=== PATIENT | male | born 1955 | race Caucasian/White ===

== ENCOUNTER 2019-01-10 14:00 | Inpatient (IN) ==
[2019-01-10] MEDS ORDERED: ASPIRIN PO ONE (14:19)
[2019-01-10 14:33] LABS: BE 0.4 mmoll (-3.0-3.0); BLOOD TYPE ARTERIAL; HCO3-(ACT) 25.1 mmoll (20.0-26.0); METHB 1.3 % (0.0-1.5); O2(CT) 18.9 mL/dL (15.0-23.0); O2HB 93.9 % (95.0-99.0); PCO2(98.6) 31 mmHg (35-45); PO2(98.6) 75 mmHg (60-100); SAMPLE BLOOD; SAO2 97.7 % (95.0-100.0); THB 14.3 g/dL (11.5-17.4); pH(98.6) 7.48 (7.35-7.45)
[2019-01-10 14:34] LABS: ALLEN TEST NO; MODALITY ROOM AIR
[2019-01-10 14:46] LABS: BASO# 0.04 X1000 (0.0-0.2); BASO% 0.3 % (0.0-0.8); EOS# 0.13 X1000 (0.0-0.7); EOS% 1.1 % (0.0-10.0); HEMATOCRIT 41.8 % (42.0-52.0); HEMOGLOBIN 13.7 g/dL (14.0-18.0); IMM GRAN# 0.02 X1000 (0.0-0.04); IMM GRAN% 0.2 % (0.0-0.5); LYMPH# 3.59 X1000 (1.2-3.4); LYMPH% 29.9 % (20.5-51.1); MCH 30.6 PG (27-31); MCHC 32.8 g/dL (33-37); MCV 93.5 FL (81-99); MONO# 0.99 X1000 (0.11-0.59); MONO% 8.2 % (1.7-9.3); MPV 12.5 FL (7.4-10.4); NEUT# 7.25 X1000 (1.4-6.5); NEUT% 60.3 % (42.2-75.2); PLT 265 X1000 (130-400); RBC 4.47 XMIL (4.7-6.1); WBC 12.02 X1000 (4.8-10.8)
[2019-01-10 14:56] LABS: INR 1.07; PROTIME 14.5 Seconds (11.0-16.0)
[2019-01-10 14:57] LABS: PTT 32.1 Seconds (22.3-41.8)
[2019-01-10 15:08] LABS: AGAP 13; ALBUMIN 4.7 g/dL (3.5-5.0); ALKALINE PHOSPHATASE 57 U/L (32-122); BUN 16 mg/dL (8-22); CALCIUM 9.8 mg/dL (8.8-10.2); CHLORIDE 102 mmol/L (98-107); CK PROFILE 64 U/L (24-204); COSMO 279; CREATININE 1.2 mg/dL (0.7-1.2); ESTIMATED GFR > 60; GLUCOSE 135 mg/dL (70-104); GOT 17 U/L (10-34); GPT 24 U/L (10-44); POTASSIUM 4.5 mmol/L (3.5-5.1); SODIUM 138 mmol/L (136-145); TCO2 24 mmol/L (25-35); TOTAL PROTEIN 7.3 g/dL (6.3-8.3)
--- NOTE | 2019-01-10 15:51 | EKG Report ---
Test Performed on : 01/10/2019 2:26:28 PM Test Reason : sob chest pressure Blood Pressure : / mmHG Vent. Rate : 107 BPM Atrial Rate : 119 BPM P-R Int : 000 ms QRS Dur : 112 ms QT Int : 306 ms P-R-T Axes : 000 044 234 degrees QTc Int : 408 ms Undetermined rhythm Left ventricular hypertrophy with repolarization abnormality Abnormal ECG No previous ECGs available Unconfirmed Result
--- NOTE | 2019-01-10 16:00 | PROVIDER DOCUMENTATION ---
This chart was entered by Erika Dukes Scribe, acting as scribe for Donovan Hughes MD. HPI-Chest Pain - General Chief Complaint: Shortness of Breath Stated Complaint: SOB / NAUSEA Time Seen by Provider: 01/10/19 14:20 Source: patient Allergies/Adverse Reactions: Patient Allergies Allergy/AdvReac Type Severity Reaction Status Date / Time No Known Allergies Allergy Verified 01/10/19 14:18 - History of Present Illness-CP Nature of Presenting Problem: 63 y/o male presents to ED with intermittent pressure-like chest pain, SOB, and nausea onset 2 weeks ago. Pt reports he feels like someone is sitting on his chest. Pt is alert and oriented. Location: reports: central Chest Pain Radiation: reports: no radiation Quality of Pain: reports: pressure Severity in ED: moderate Onset/Duration: other (2 weeks ago) Timing: still present, intermittent, getting worse Context/Activities at Onset: reports: none Modifying Factors: improves with: nothing Associated Symptoms: reports: nausea, shortness of breath Nitro Today/Relief: no nitro taken today Aspirin Treatment Today: 325 mg x 1, provided by ED Prior Chest Pain/Cardiac Workup: reports: no prior chest pain, no prior cardiac workup Similar Symptoms Previously?: No Recently Seen Here or By Another Healthcare Provider: No Review of Systems - Adult - REVIEW OF SYSTEMS - ADULT Constitutional: denies: chills, fever Eyes: reports: no symptoms reported Ears, Nose, Mouth & Throat: reports: no symptoms reported Cardiovascular: reports: chest pain. denies: palpitations Respiratory: reports: shortness of breath. denies: cough Gastrointestinal: reports: nausea. denies: abdominal pain, diarrhea, vomiting Genitourinary: reports: no symptoms reported Musculoskeletal: reports: no symptoms reported Integumentary: reports: no symptoms reported Neurological: denies: dizziness/vertigo, seizure Psychiatric: reports: no symptoms reported Endocrine: reports: no symptoms reported Hematologic/Lymphatic: reports: no symptoms reported Allergic/Immunologic: reports: no symptoms reported All Other Systems: Reviewed and Negative Past History - Adult - PAST MEDICAL HISTORY-ADULT Review of Records: reports: Old Records Reviewed, Nursing Assessment Review, Medications Reviewed Major Childhood Illnesses: reports: denies history - PRIOR SURGERIES/PROCEDURES Surgical/Procedure History: reports: none - IMMUNIZATION STATUS Childhood Immunizations: See Nurse Assessment Flu Vaccine: See Nurse Assessment - FAMILY HISTORY Family History: reviewed, not pertinent - SOCIAL HISTORY Smoking: greater than 1 pack/day Provider spent 3-5 mins advising pt. on dangers of tobacco.: Discussed manners to quit use, and f/u contacts for add'l counseling. Substance Use: none/never Alcohol Use Frequency: never Living Situation: family Physical Exam-General - PHYSICAL EXAM-ADULT Initial Vital Signs Reviewed: Yes - CONSTITUTIONAL General Appearance: alert, moderate distress - EYES Eyes: PERRL/EOMI, pink conjunctivae - HEAD, EARS, NOSE, MOUTH & THROAT HENMT: normocephalic/atraumatic, moist mucous membranes, normal ENT inspection - NECK Neck: non-tender, full range of motion - RESPIRATORY Respiratory: chest non-tender, respiratory distress, accessory muscle use, rhonchi, increased rate - CARDIOVASCULAR Cardiovascular: tachycardia, irregularly irregular - GASTROINTESTINAL (ABDOMEN) Abdominal Exam: normal bowel sounds, soft, tenderness (RUQ) - MUSCULOSKELETAL Back Exam: normal inspection, no CVA tenderness, no vertebral tenderness Extremity: normal range of motion, non-tender - SKIN Integumentary: normal color, warm/dry - NEUROLOGIC Neurologic: grossly normal - PSYCHIATRIC Psych/Mental Status: normal mood/affect, normal thought content, normal thought process, oriented x 3 - HEART Score HEART Score: History: Moderately Suspicious HEART Score: ECG: Non-Specific Repolarization Disturbance/LBBB/PM HEART Score: Age: 45-65 Years HEART Score: Risk Factors for Atherosclerotic Disease: No Risk Factors Known HEART Score: Troponin: < or = Normal Limit Total HEART Score:: 3 Progress - PLAN OF CARE/RESULTS Progress/Plan/Lab Results: Vital Signs - 8 hr 01/10/19 14:14 01/10/19 15:23 01/10/19 15:52 Temperature 97.6 F Pulse Rate 92 H 95 H 108 H Respiratory Rate 26 H 20 16 Blood Pressure 147/80 132/84 132/84 O2 Sat by Pulse Oximetry 96 96 96 Laboratory Results - last 24 hr 01/10/19 01/10/19 01/10/19 14:10 14:30 14:30 WBC 12.02 H RBC 4.47 L Hgb 13.7 L Hct 41.8 L MCV 93.5 MCH 30.6 MCHC 32.8 L RDW Std Deviation 14.0 Plt Count 265 MPV 12.5 H Immature Gran % (Auto) 0.2 Neut % (Auto) 60.3 Lymph % (Auto) 29.9 [place] % (Auto) 8.2 Eos % (Auto) 1.1 Baso % (Auto) 0.3 Immature Gran # (Auto) 0.02 Neut # (Auto) 7.25 H Lymph # (Auto) 3.59 H [place] # (Auto) 0.99 H Eos # (Auto) 0.13 Baso # (Auto) 0.04 PT INR PTT (Actin FS) Specimen Type ARTERIAL Sample Site R RADIAL pH 7.48 H pCO2 31 L pO2 75 HCO3 25.1 Base Excess 0.4 Oxyhemoglobin 93.9 L ABG O2 Sat (Calculated) 18.9 ABG O2 Saturation 97.7 ABG Carboxyhemoglobin 2.60 H ABG Methemoglobin 1.3 Jero Test NO A-a O2 Difference 36.0 Total Hemoglobin 14.3 Lactate 1.20 Blood Gas Modality ROOM AIR FiO2 % 21.0 Sodium 138 Potassium 4.5 Chloride 102 Carbon Dioxide 24 L Anion Gap 13 BUN 16 Creatinine 1.2 Estimated GFR/1.73 m2 > 60 BUN/Creatinine Ratio 13 Glucose 135 H Calculated Osmolality 279 Calcium 9.8 Total Bilirubin 1.60 H AST 17 ALT 24 Alkaline Phosphatase 57 Creatine Kinase 64 Troponin T [id number] Pept Total Protein 7.3 Albumin 4.7 Globulin 3.0 Albumin/Globulin Ratio 2.0 01/10/19 01/10/19 01/10/19 14:30 14:30 14:30 WBC RBC Hgb Hct MCV MCH MCHC RDW Std Deviation Plt Count MPV Immature Gran % (Auto) Neut % (Auto) Lymph % (Auto) [place] % (Auto) Eos % (Auto) Baso % (Auto) Immature Gran # (Auto) Neut # (Auto) Lymph # (Auto) [place] # (Auto) Eos # (Auto) Baso # (Auto) PT 14.5 INR 1.07 PTT (Actin FS) 32.1 Specimen Type Sample Site pH pCO2 pO2 HCO3 Base Excess Oxyhemoglobin ABG O2 Sat (Calculated) ABG O2 Saturation ABG Carboxyhemoglobin ABG Methemoglobin Jero Test A-a O2 Difference Total Hemoglobin Lactate Blood Gas Modality FiO2 % Sodium Potassium Chloride Carbon Dioxide Anion Gap BUN Creatinine Estimated GFR/1.73 m2 BUN/Creatinine Ratio Glucose Calculated Osmolality Calcium Total Bilirubin AST ALT Alkaline Phosphatase Creatine Kinase Troponin T < 0.010 [id number]-[id number] Pept 4739 H Total Protein Albumin Globulin Albumin/Globulin Ratio Orders Category Date Time Status Admit - [facility] Routine AdmDCTranf 01/10/19 15:46 Active Call Admitting on Arrival AT ADMISSION Care 01/10/19 15:48 Active Cardiac Monitoring DIRECTED Care 01/10/19 14:20 Active Oxygen Therapy- ED Nursing DIRECTED Care 01/10/19 14:20 Active Saline Loc NOW Care 01/10/19 14:20 Active Vital Signs Order ROUTINE Care 01/10/19 15:46 Active Z-Document. for Tele Applied ORDERED Care 01/10/19 15:49 Active CHEST-2 VIEWS [RAD] Stat Exams 01/10/19 14:20 Completed ABG [RESP] Routine Lab 01/10/19 14:10 Completed CBC WITH ELECTRONIC DIFF [HEME] Stat Lab 01/10/19 14:30 Completed CK PROFILE [SP CHEM] Q6H Lab 01/10/19 16:00 Ordered CK PROFILE [SP CHEM] Q6H Lab 01/10/19 22:00 Ordered CK PROFILE [SP CHEM] Stat Lab 01/10/19 14:30 Completed COMPREHENSIVE METABOLIC PANEL [CHEM] Stat Lab 01/10/19 14:30 Completed PRO B-NATRIURETIC PEPTIDE Stat Lab 01/10/19 14:30 Completed PROTIME WITH INR [COAG] Stat Lab 01/10/19 14:30 Completed PTT [COAG] Stat Lab 01/10/19 14:30 Completed TROPONIN T Q6H Lab 01/10/19 16:00 Ordered TROPONIN T Q6H Lab 01/10/19 22:00 Ordered TROPONIN T Stat Lab 01/10/19 14:30 Completed Aspirin Med 01/10/19 14:19 Discontinued 325 mg PO NOW ONE CP/SOB/Palp >45 yrs of Age Stat Oth 01/10/19 14:19 Ordered Telemetry [OM.EQ] Routine Oth 01/10/19 15:46 Active EKG [EKG] Stat Ther 01/10/19 14:20 Draft Echo Spec/Color Doppler Stat Ther 01/10/19 16:03 Ordered Transfer/Admit Order [TRANSFER] Routine Transfer 01/10/19 15:46 Ordered Result Diagrams: 01/10/19 14:30 01/10/19 14:30 - EKG 1 Time of EKG reading by physician:: 14:26 EKG Read and Signed by:: Donovan Hughes EKG Interpretation (*Must complete 3 of following elements*): Abnormal Rate: 107 Rhythm: Undetermined [place]: normal QRS: LVH (with repolarization abormality) IN Interval: normal ST Wave: normal - XRAY 1 XRAY Study: Chest Impression: See EMR Report ([facility] - [address], [address], [place] [address] [facility] - [address] [place] [address] Department of Imaging Patient: SEVERINO FELTON Date: 01/10/19#: [id number] : 5ADM Status: REG [facility]#: [id number] Age/Sex: 63/MRoom/Bed: Loc: P.ED Ordering Physician: Donovan Hughes MD Family Physician: None,PCP Reason for Procedure: sob chest pressure Signed CHEST-2 VIEWS - 01/10/2019 INDICATION: sob chest pressure COMPARISON: None FINDINGS: There is cardiomegaly and diffuse bilateral interstitial pulmonary edema. There are trace pleural effusions. IMPRESSION: Congestive heart failure. Electronically signed by Skyler Wheatley 01/10/2019 3:56 PM 01/10/19 1556 Interpreting Physician: Skyler Wheatley MD Dictated Date/Time: 01/10/19 155 cc: Donovan Hughes MD; None,PCP) - CONSULTS/PCP/HOSPITALIST Notification #1 *Consult/PCP/Hospitalist*: Dr. Vázquez Time Discussed: 15:45 Reason/Comments: CHF; afib Consult Disposition: Admit Departure - Departure Date of Disposition Decision: 01/10/19 Time of Disposition Decision: 15:45 DIAGNOSIS: Tobacco use CHF (congestive heart failure) Qualifiers: Heart failure type: unspecified Heart failure chronicity: acute Qualified Code(s): I50.9 - Heart failure, unspecified Afib Qualifiers: Atrial fibrillation type: unspecified Qualified Code(s): I48.91 - Unspecified atrial fibrillation Disposition: ADMITTED INPATIENT 09 Certified Medical Emergency: Emergent Condition: Stable Referrals and Follow-Ups: None,PCP [Primary Care Provider] - Discharge Education: Steps to Quit Smoking, [id number] - Critical Care Note This patient required my direct & personal management of CC.: No Attestation - Physician/ JAIME Attestation Patient care was provided by Advanced Practice Provider:: No The physician spent face to face time with patient:: Yes Advanced Practice Provider documentation review:: Supervising physician onsite and consulted in the evaluation and care of this patient. The physician did have a face to face encounter with the patient. This chart was documented by the indicated scribe, (Erika Dukes, [employer]) and accurately reflects the services I performed and decisions made by me, Donovan Hughes MD, as attested by the provider's signature.
[2019-01-10] MEDS ORDERED: CARDIZEM IV ONE (16:28)
[2019-01-10] MEDS ORDERED: LASIX IV ONE (16:28)
[2019-01-10] MEDS ORDERED: CARDIZEM 125 MG/D5W 125 MG/125 ML IVPB IV SCH (16:43)
--- NOTE | 2019-01-10 17:09 | HISTORY AND PHYSICAL ---
PRIMARY CARE PHYSICIAN: None. CHIEF COMPLAINT: Shortness of breath, chest pain, right flank pain. HISTORY OF PRESENT ILLNESS: This is a 63-year-old gentleman, who denies any prior health history, who presented to the emergency room complaining of 2 to 3 weeks of shortness of breath, nausea, chest pressure feeling like someone is sitting on his chest. He states this has progressively gotten worse over the last week. He has noted that he has had to slow down with his normal activities of daily living due to shortness of breath. Over the last 48 hours, he has developed about a 45-degree orthopnea. He did notice that he has had some lower extremity edema over the last week. He has had a dry cough, abdominal fullness, and nausea. PAST MEDICAL HISTORY: Denies past. PAST SURGICAL HISTORY: Denies. SOCIAL HISTORY: He smokes about a pack of cigarettes a day. He denies any alcohol use. He quit drinking about 13 months ago; at that time, he was drinking 6 beers a day. He does smoke marijuana occasionally. FAMILY HISTORY: Positive for hypertension in first-degree relatives. He is unaware of any coronary artery disease. ALLERGIES: No known drug allergies. HOME MEDICATIONS: None. REVIEW OF SYSTEMS: Discussed with the patient with pertinent positives stated in the HPI. He denied any syncope or dizziness, any palpitations, a productive cough, any fevers or chills, recent weight loss or weight gain, any vomiting, diarrhea, constipation, black or bloody vomitus or stools, any hematuria, dysuria, frequency, urgency. PHYSICAL EXAMINATION: GENERAL: This is a 63-year-old gentleman, who is sitting on the stretcher in the emergency room who is anxious and in mild distress. VITAL SIGNS: Blood pressure is 132/84 with a heart rate ranging 106 to 142, respirations are 20 to 22, with temperature 97.6 degrees and O2 saturation is 96% on 2 L nasal cannula. EYES: Pupils are equal, round, react to light. EOMs are intact. Sclerae are anicteric. HENT: Head is normocephalic, atraumatic. Mucous membranes are moist. NECK: Supple with trachea midline. No JVD. CARDIOVASCULAR: He is tachycardic. Heart rate is irregularly irregular. S1 and S2 appreciated. No murmur. Has bilateral lower extremity edema just about to the knees. Calves are nontender bilateral with peripheral pulses palpable x4 extremities. PULMONARY: Breath sounds with some crackles at the bases. Rhonchi that do not clear to cough. He does have increased work of breathing noted. Chest rises and falls symmetric with respiration. GASTROINTESTINAL: Abdomen is soft. He does have some right upper quadrant tenderness with bowel sounds in all 4 quadrants. SKIN: Warm and dry. NEUROLOGIC: He is alert oriented x3. He is anxious. DIAGNOSTIC STUDIES: WBC is 12 with hemoglobin 13.7, hematocrit 41.8, platelets of 265,000. INR is 1.07 sodium is 138, potassium 4.5, BUN 16, creatinine 1.2 with a glucose of 135. Troponin is negative. Blood gases: PH is 7.48 with a pCO2 of 31, pO2 of 75, bicarbonate of 25.1; these are on room air. EKG reveals atrial fibrillation with PVCs at a rate of 107. Chest x-ray reveals congestive heart failure. ASSESSMENT AND PLAN: 1. New onset congestive heart failure. 2. New onset atrial fibrillation with rapid ventricular response. 3. Chest pain. 4. Right upper quadrant and right flank pain. 5. Shortness of breath. 6. Leukocytosis. PLAN: The patient will be admitted to and transferred to [facility] to ICU for close monitoring. We will give Cardizem 10 mg IV now and start a Cardizem drip per protocol. We will give supplemental oxygen. He will be placed on telemetry with daily weights, strict intake and output. We will obtain a stat echocardiogram. Repeat cardiac profile and troponin. Getting an EKG at 10 and 8 in the morning. We will check a TSH as well as a magnesium now and a CBC, CMP in the morning. Give Lovenox 1 mg/kg b.i.d., morphine 2 mg IV q.3 h. p.r.n. pain. Start a nicotine patch. Further treatments pending hospital course. Plan was discussed with Dr. Vázquez. Dictated by RACHAEL Rubin for Ravin Vázquez MD cc: RACHAEL Rubin MD
[2019-01-10] MEDS: LOVENOX SUBQ SCH (17:10)
[2019-01-10] MEDS: NICODERM PATCH TD SCH (17:14)
--- NOTE | 2019-01-10 20:05 | HISTORY AND PHYSICAL ---
HISTORY OF PRESENT ILLNESS: The patient presented to the hospital with increased work of breathing, cough, congestion, increased shortness of breath. Currently, notes that he is feeling tremendously better since receiving Lasix in the ER. His heart rate has also slowed down. He is in atrial fibrillation. He has no previous history of atrial fibrillation. We are going to admit him to the hospital, place him on Cardizem, treat his congestive heart failure, and we will follow. cc: Ravin Vázquez MD
[2019-01-10] MEDS ORDERED: ATIVAN PO ONE (21:40)
[2019-01-10] MEDS: MORPHINE IV PRN (22:58)
--- NOTE | 2019-01-11 00:28 | EKG Report ---
Test Performed on : 01/10/2019 10:45:26 PM Test Reason : Afib, CP, Blood Pressure : / mmHG Vent. Rate : 074 BPM Atrial Rate : 063 BPM P-R Int : 000 ms QRS Dur : 114 ms QT Int : 450 ms P-R-T Axes : 000 033 140 degrees QTc Int : 499 ms Undetermined rhythm Left ventricular hypertrophy with repolarization abnormality Prolonged QT Abnormal ECG When compared with ECG of 10-JAN-2019 22:41, (Unconfirmed) Current undetermined rhythm precludes rhythm comparison, needs review Unconfirmed Result
[2019-01-11] MEDS: MORPHINE IV PRN ×3 (02:20→17:48)
[2019-01-11] MEDS ORDERED: SODIUM CHLORIDE 0.9% INJ PRN (03:04)
[2019-01-11] MEDS: PHENERGAN IV PRN ×3 (03:16→16:55)
[2019-01-11] MEDS: LOVENOX SUBQ SCH ×2 (05:19→17:30)
[2019-01-11 06:01] LABS: BASO# 0.03 X1000 (0.0-0.2); BASO% 0.3 % (0.0-0.8); EOS# 0.01 X1000 (0.0-0.7); EOS% 0.1 % (0.0-10.0); HEMATOCRIT 41.6 % (42.0-52.0); HEMOGLOBIN 13.6 g/dL (14.0-18.0); IMM GRAN# 0.02 X1000 (0.0-0.04); IMM GRAN% 0.2 % (0.0-0.5); LYMPH% 15.4 % (20.5-51.1); MCH 30.7 PG (27-31); MCHC 32.7 g/dL (33-37); MCV 93.9 FL (81-99); MONO# 0.63 X1000 (0.11-0.59); MONO% 5.4 % (1.7-9.3); MPV 12.8 FL (7.4-10.4); NEUT# 9.21 X1000 (1.4-6.5); NEUT% 78.6 % (42.2-75.2); PLT 244 X1000 (130-400); RBC 4.43 XMIL (4.7-6.1); RDW 13.9 % (11.5-14.5)
[2019-01-11 06:12] LABS: AGAP 15; ALB/GLOB RATIO 1.5; ALBUMIN 4.1 g/dL (3.5-5.0); ALKALINE PHOSPHATASE 53 U/L (32-122); BUN 20 mg/dL (8-22); CHLORIDE 100 mmol/L (98-107); COSMO 279; CREATININE 1.1 mg/dL (0.7-1.2); ESTIMATED GFR > 60; GLUCOSE 141 mg/dL (70-104); GOT 14 U/L (10-34); GPT 19 U/L (10-44); POTASSIUM 4.6 mmol/L (3.5-5.1); SODIUM 137 mmol/L (136-145); TCO2 22 mmol/L (25-35); TOTAL BILIRUBIN 1.76 mg/dL (0.20-1.00); TOTAL PROTEIN 6.8 g/dL (6.3-8.3)
--- NOTE | 2019-01-11 07:38 | EKG Report ---
Test Performed on : 01/11/2019 06:53:54 AM Test Reason : Afib, CP Blood Pressure : / mmHG Vent. Rate : 086 BPM Atrial Rate : 097 BPM P-R Int : 000 ms QRS Dur : 116 ms QT Int : 412 ms P-R-T Axes : 000 013 211 degrees QTc Int : 493 ms Atrial fibrillation. with premature ventricular or aberrantly conducted complexes. Left ventricular hypertrophy with QRS widening ST & T wave abnormality, consider lateral ischemia Prolonged QT Abnormal ECG When compared with ECG of 10-JAN-2019 22:45, (Unconfirmed) Previous ECG has undetermined rhythm, needs review Unconfirmed Result
[2019-01-11] MEDS: LASIX IV SCH ×2 (08:59→21:00)
[2019-01-11] MEDS ORDERED: LASIX IV SCH (09:00)
[2019-01-11] MEDS: NICODERM PATCH TD SCH (09:00)
[2019-01-11] MEDS ORDERED: LOPRESSOR IV PRN (09:06)
--- NOTE | 2019-01-11 09:11 | EKG Report ---
Test Performed on : 01/11/2019 09:04:51 AM Test Reason : CP Blood Pressure : / mmHG Vent. Rate : 112 BPM Atrial Rate : 119 BPM P-R Int : 000 ms QRS Dur : 110 ms QT Int : 358 ms P-R-T Axes : 000 034 115 degrees QTc Int : 488 ms Atrial fibrillation. with rapid ventricular response. with premature ventricular or aberrantly conduc lauren complexes. Minimal voltage criteria for LVH, may be normal variant ST & T wave abnormality, consider lateral ischemia Abnormal ECG When compared with ECG of 11-JAN-2019 06:53, (Unconfirmed) Nonspecific T wave abnormality no longer evident in Inferior leads Unconfirmed Result
[2019-01-11] MEDS: ASPIRIN EC PO SCH (09:33)
[2019-01-11] MEDS: LOPRESSOR PO SCH ×3 (09:33→20:59)
--- NOTE | 2019-01-11 09:39 | PROGRESS NOTE ---
DATE: 01/11/2019 SUBJECTIVE: This patient is still complaining of some shortness of breath, but compared with admission he feels better. Also as per the patient, this has been happening for the past 3 weeks with orthopnea and pressure-like chest pain. Cardiology Department has been consulted. I have increased the dose of Lasix to 40 twice a day. He has also a new onset atrial fibrillation. I have been waiting for the echocardiogram report, but likely this patient also has CHF based on his symptoms. At this moment, his rate is controlled. He has been on the diltiazem drip, which has been stopped I believe, anticoagulation Lasix. I ordered a lipid panel, but I will put her on Lipitor anyway. In the meantime, Cardiology Department evaluated this patient at this moment. I will follow their recommendations. OBJECTIVE: Vital Signs: Temperature 98.1 degrees, pulse 94, respiratory rate 18, blood pressure 148/84, oxygen saturation 99 on 3 L of nasal cannula. HEENT: Head normocephalic, no trauma. PERRLA. Neck: Supple. He does have some JVD central trachea. Cardiovascular: Irregularly irregular rate and rhythm. Chest: Decreased breath sounds at the bases with bilateral crackles. Abdomen: Soft, nontender, nondistended. No hepatosplenomegaly. Extremities: No edema, no clubbing, no cyanosis. Neurological examination: The patient is alert. He is oriented x3. No focal neurological deficits. LABORATORY: WBC 11.7, hemoglobin 13.6, hematocrit 41.6, platelets 244. Sodium 137, potassium 4.6, chloride 100, bicarbonate 22. BUN 20, creatinine 1.1, glucose 141, calcium 9. ASSESSMENT AND PLAN: 1. Chest pain. This patient describes the chest pain as a pressure-like and mostly with physical activity. This has been happening for the past 3 weeks or so. As per the patient before that he was feeling fine. 2. Likely new onset congestive heart failure for 3 weeks also with orthopnea at home and shortness of breath with physical activity. X-ray showed pulmonary edema and pleural effusion. He has been feeling much better after getting diuretics. 3. New onset atrial fibrillation with rapid ventricular response. He was placed on diltiazem drip, which has been stopped already. Rate controlled. He is still on atrial fibrillation, and he has been placed on Lovenox twice a day. 4. Right upper quadrant flank pain, probably this is musculoskeletal. Will monitor, but also can be related to a passive liver congestion. 5. Leukocytosis, probably reactive. I do not have any source of infection. 6. Tobacco abuse. This patient has been highly advised against tobacco use. I will continue with daily cessation education. Pending echocardiogram, Cardiology Department evaluated this patient at this moment, pending recommendations. cc: MD Ravin Jones MD
[2019-01-11 10:10] LABS: CHOLESTEROL 150 mg/dL (0-200); HDL 33 mg/dL (35-55); LDL 101 mg/dL; TRIGLYCERIDES 79 mg/dL (39-160); VLDL 16 mg/dL
--- NOTE | 2019-01-11 10:41 | CARDIOLOGY CONSULTATION ---
DATE: 01/11/2019 CHIEF COMPLAINT: Shortness of breath. HISTORY OF PRESENT ILLNESS: Mr. mcclain is a 63-year-old white male who appears older than stated age who presents for evaluation of shortness of breath that has been going on for about 3 to 4 weeks. He has been experiencing orthopnea as well as progressive dyspnea with activities of daily living. Around a month ago he was able to push mow his lawn but presently he is meeting getting short of breath at rest. He reports some occasional chest heaviness throughout the day with minimal activity. No lower extremity edema. The patient has been healthy prior to this by virtue of little contact with the medical community. PAST MEDICAL HISTORY: None again by virtue of lack of contact with the medical community. SOCIAL HISTORY: He smokes a pack or more of cigarettes a day. He quit drinking around 1 year ago. FAMILY HISTORY: Significant for hypertension. He also has coronary disease in first-degree relatives but notably he reports everyone who has heart disease also smokes. REVIEW OF SYSTEMS: A 10 system review of systems is negative except for those mentioned in HPI. PHYSICAL EXAMINATION: Vital Signs: He is afebrile. Heart rate 94, blood pressure 148/84. His I's and O's are limited but presently he is negative a L.Generally: He is in mild distress secondary to shortness of breath. HEENT: Oropharynx is moist. Poor dentition. Eye examination is pink conjunctivae. White sclerae. Neck: Examination shows no obvious thyromegaly or thyroid tenderness. His silver certainly clouds the examination of his neck. Cardiovascular: He is in a tachycardic and irregular rhythm. He has no murmurs. He has no S3 no lower extremity edema. Chest: Exam has rales in the bilateral bases. He is mildly tachypneic. Abdomen: Soft, nontender, nondistended. He has no obvious organomegaly. Skin: Warm and dry throughout without any rashes. Neurological: He is moving all extremities well. He has no lateralizing deficits. PERTINENT DATA: His chest x-ray demonstrates evidence for cardiomegaly as well as pulmonary edema. His initial EKG demonstrated atrial fibrillation rate of 107 beats per minute. He has wide QRS complex beats consistent with either PVCs or aberrant conduction. He has ST-segment depression in the lateral leads. Subsequent EKG shows on the at 22:45 shows what appears to be atrial fibrillation rate of 74 beats per minute. Again wide complex beats representing either aberrant conduction or PVCs. He has mild ST depression laterally again and his final EKG on the at 6:53 a.m. shows what appears to be atrial fib rate of 86 beats per minute. Wide complex beats consistent with PVCs or aberrant conduction ST-segment depression laterally. White count 11.7 hematocrit 41, platelet count is 244,000. His sodium is 137, potassium 4.6, BUN 20, creatinine is 1.1. His total bilirubin is 1.76. His proBNP was 47 39 yesterday. His cardiac enzymes are negative. His albumin is 4.1. ASSESSMENT: Mr. Arriaga is a 63-year-old gentleman who presents with signs suggestive of congestive heart failure as well as with new onset atrial fibrillation. PLAN: We will continue diuresing him. He is on Lasix 40 mg IV b.i.d. We will continue him on the Lovenox. I have stopped his diltiazem infusion which he is actually not receiving right now and placed him on oral Lopressor at 25 q.6h hours along with IV Lopressor p.r.n. for breakthrough. We will continue to try to diurese the patient. Likely he will need some sort of ischemic evaluation prior to discharge home. cc: MD Ravin Michaels MD
[2019-01-11 12:07] LABS: ALLEN TEST YES; BE 2.5 mmoll (-3.0-3.0); BLOOD TYPE ARTERIAL; HCO3-(ACT) 26.8 mmoll (20.0-26.0); METHB 0.9 % (0.0-1.5); O2(CT) 19.6 mL/dL (15.0-23.0); O2HB 95.8 % (95.0-99.0); PCO2(98.6) 28 mmHg (35-45); PO2(98.6) 89 mmHg (60-100); SAMPLE BLOOD; SAO2 99.3 % (95.0-100.0); THB 14.5 g/dL (11.5-17.4); pH(98.6) 7.54 (7.35-7.45)
[2019-01-11 12:08] LABS: MODALITY CANNULA
--- NOTE | 2019-01-11 12:15 | Diag Imaging Result Doc PS360 ---
EXAM: CHEST-PORTABLE 01/11/2019 HISTORY: sob TECHNIQUE: AP portable upright at 1206 COMMENT: There is increased interstitial opacity in both lung marquez. The heart size is enlarged. Compared to 01/10/2019 this has not changed appreciably considering differences in technique. IMPRESSION: Interstitial pulmonary edema and cardiomegaly. Electronically signed by Elijah Mcleod 01/11/2019 12:12 PM
[2019-01-11] MEDS: COZAAR PO SCH (13:16)
[2019-01-11 16:48] LABS: UR AMPHETAMINES QUAL NONE DETECTED (NONE DETECT); UR BARBITUATES QUAL NONE DETECTED (NONE DETECT); UR BENZODIAZEPIN QUAL NONE DETECTED (NONE DETECT); UR CANNABINOIDS QUAL PRESUMPTIVE POSITIVE (NONE DETECT); UR COCAINE QUAL NONE DETECTED (NONE DETECT); UR METHADONE QUAL NONE DETECTED (NONE DETECT); UR OPIATES QUAL PRESUMPTIVE POSITIVE (NONE DETECT); UR OXYCODONE QUAL NONE DETECTED (NONE DETECT); UR PCP QUAL NONE DETECTED (NONE DETECT)
--- NOTE | 2019-01-11 20:41 | ECHO REPORT ---
ORDER DATE: 01/10/2019 MEASUREMENTS: Septal thickness 1.2, left ventricular internal diameter end diastole 7.2, posterior wall thickness 1.1, left ventricular internal diameter end systole 6.5, aortic root 3.3, left atrium 5.2. SUMMARY: 1. Fair quality study. 2. Very mild aortic valve sclerosis demonstrated. Aortic valve is not well imaged and aortic valve configuration is difficult to determine given limitations of study. Aortic valve opening appears to be clearly adequate. The peak gradient across the aortic valve is less than 10 mmHg. There is trace aortic regurgitation. Mitral, tricuspid, and pulmonic valves are without evidence of structural abnormality with moderate to severe mitral regurgitation in setting of significant left ventricular enlargement, moderate tricuspid regurgitation, and mild pulmonic insufficiency. The estimated systolic PA pressure by Doppler is 70 mmHg suggesting moderate to severe pulmonary hypertension. Aortic root is normal in size. 3. Moderate left ventricular enlargement with mild concentric left hypertrophy is demonstrated. The estimated left ejection fraction is approximately 20% in the setting of severe global hypokinesis. Left atrium is moderately enlarged. Right atrium and right ventricle are normal in size with grossly preserved right ventricular systolic function. 4. No pericardial effusion. 5. Appearance of inferior vena cava suggests elevated central venous pressure. CONCLUSIONS: 1. Aortic valve not well imaged but appears to be without stenosis. 2. Moderate to severe mitral regurgitation in setting of left ventricular enlargement. 3. Moderate tricuspid regurgitation with moderate to severe pulmonary hypertension. 4. Moderate left ventricular enlargement with mild concentric left hypertrophy with estimated ejection fraction 20%. 5. Moderate left atrial enlargement. 6. Elevated central venous pressure is suggested. cc: MD Donovan Cancino MD Gregory S. Cheatham, MD
[2019-01-11] MEDS: LIPITOR PO SCH (21:00)
--- NOTE | 2019-01-11 22:57 | EKG Report ---
Test Performed on : 01/11/2019 4:58:39 PM Test Reason : chest pain Blood Pressure : / mmHG Vent. Rate : 098 BPM Atrial Rate : 078 BPM P-R Int : 000 ms QRS Dur : 114 ms QT Int : 348 ms P-R-T Axes : 000 025 242 degrees QTc Int : 444 ms Atrial fibrillation. Left ventricular hypertrophy with repolarization abnormality Abnormal ECG When compared with ECG of 11-JAN-2019 09:04, (Unconfirmed) Current undetermined rhythm precludes rhythm comparison, needs review T wave inversion now evident in Inferior leads Confirmed by Thiago MÉNDEZ, P.J.M ([id number]) on 01/13/2019 7:55:02 PM
[2019-01-12] MEDS: PHENERGAN IV PRN (00:44)
[2019-01-12] MEDS: MORPHINE IV PRN ×3 (00:45→20:46)
[2019-01-12] MEDS: LOPRESSOR PO SCH ×3 (02:25→20:46)
[2019-01-12] MEDS: LOVENOX SUBQ SCH ×2 (05:28→17:30)
[2019-01-12 06:10] LABS: BASO# 0.04 X1000 (0.0-0.2); BASO% 0.3 % (0.0-0.8); EOS# 0.07 X1000 (0.0-0.7); EOS% 0.6 % (0.0-10.0); HEMATOCRIT 40.7 % (42.0-52.0); HEMOGLOBIN 13.2 g/dL (14.0-18.0); IMM GRAN# 0.05 X1000 (0.0-0.04); IMM GRAN% 0.4 % (0.0-0.5); LYMPH# 3.42 X1000 (1.2-3.4); LYMPH% 27.5 % (20.5-51.1); MCH 30.6 PG (27-31); MCHC 32.4 g/dL (33-37); MCV 94.4 FL (81-99); MONO# 1.13 X1000 (0.11-0.59); MONO% 9.1 % (1.7-9.3); MPV 13.1 FL (7.4-10.4); NEUT# 7.71 X1000 (1.4-6.5); NEUT% 62.1 % (42.2-75.2); PLT 246 X1000 (130-400); RBC 4.31 XMIL (4.7-6.1); RDW 14.1 % (11.5-14.5); WBC 12.42 X1000 (4.8-10.8)
[2019-01-12 06:17] LABS: HEMOGLOBIN A1C 5.8 % (4.8-6.0)
[2019-01-12 06:37] LABS: AGAP 16; BUN 32 mg/dL (8-22); CALCIUM 8.7 mg/dL (8.8-10.2); CHLORIDE 100 mmol/L (98-107); COSMO 287; CREATININE 1.2 mg/dL (0.7-1.2); ESTIMATED GFR > 60; GLUCOSE 115 mg/dL (70-104); MAGNESIUM 1.9 mg/dL (1.5-2.7); SODIUM 140 mmol/L (136-145); TCO2 24 mmol/L (25-35)
--- NOTE | 2019-01-12 07:26 | EKG Report ---
Test Performed on : 01/12/2019 06:56:05 AM Test Reason : atrial fib Blood Pressure : / mmHG Vent. Rate : 070 BPM Atrial Rate : 394 BPM P-R Int : 000 ms QRS Dur : 122 ms QT Int : 434 ms P-R-T Axes : 000 017 200 degrees QTc Int : 468 ms Atrial fibrillation. with premature ventricular or aberrantly conducted complexes. Left ventricular hypertrophy with QRS widening ST & T wave abnormality, consider inferolateral ischemia Abnormal ECG When compared with ECG of 11-JAN-2019 16:58, (Unconfirmed) Previous ECG has undetermined rhythm, needs review T wave inversion less evident in Inferior leads Confirmed by Thiago MÉNDEZ, P.J.M ([id number]) on 01/13/2019 7:55:39 PM
[2019-01-12] MEDS: LASIX IV SCH (08:36)
[2019-01-12] MEDS: ASPIRIN EC PO SCH (08:36)
[2019-01-12] MEDS: COZAAR PO SCH (08:36)
[2019-01-12] MEDS: NICODERM PATCH TD SCH (08:36)
--- NOTE | 2019-01-12 13:52 | PROGRESS NOTE ---
DATE: 01/12/2019 SUBJECTIVE: No acute events overnight. This patient feels a little bit better today. He is still having some shortness of breath, but better compared with yesterday. His hemoglobin A1c 5.8. His proBNP increased from 4739 to 7342, echocardiogram showed a low ejection fraction around 20% with an elevated pulmonary pressure. OBJECTIVE: Vital Signs: Temperature 97.6 degrees, pulse 85, respiratory rate 20, blood pressure 88/62, oxygen saturation 95% on 3 L of nasal cannula. HEENT: Head normocephalic, no trauma. PERRLA. Neck: Neck is supple. He does have some JVD, central trachea. Cardiovascular: Irregularly irregular rate and rhythm. Chest: Decreased breath sounds at the bases with bilateral crackles. Abdomen: Soft, nontender, nondistended. No hepatosplenomegaly. Extremities: No edema no clubbing no cyanosis. Neurological: The patient is alert he is oriented x3. No focal deficits. LABORATORY: WBC 12.4, hemoglobin 13.2, hematocrit 40.7, platelets 246,000 sodium 140, potassium chloride 100, bicarbonate 24, BUN 32, creatinine 1.2 glucose 115, calcium 8.7, magnesium 1.9. ASSESSMENT AND PLAN: 1. Chest pain, this is better. He is not complaining of too much discomfort today. We will continue to monitor. We will continue with the same medications and we will continue with same treatment. 2. New onset CHF, he started having symptoms 3 weeks ago with orthopnea at home and shortness of breath with even mild physical activity, echocardiogram showed a low ejection fraction of 20% and pulmonary hypertension, we will continue with diuretics. We will continue with the same management. Cardiology Department on board. 3. New onset atrial fibrillation with rapid ventricular response, now rate controlled. He has been placed on anticoagulation and beta blockers. 4. Right upper quadrant flank pain, likely musculoskeletal. We will monitor. Also could be related to a passive liver congestion. 5. Leukocytosis, likely reactive. Is still slightly elevated but I do not have any source of infection. No fever so far. 6. Tobacco abuse. This patient has been highly advised against tobacco use. I will continue with daily cessation education. cc: MD Ravin Jones MD
[2019-01-12] MEDS: LIPITOR PO SCH (20:46)
--- NOTE | 2019-01-12 21:59 | CARDIOLOGY PROGRESS NOTE ---
DATE: 01/12/2019 SUBJECTIVE: Mr. Arriaga reports his breathing has improved significantly in the last 24 hours. No chest pain. OBJECTIVE: Vital signs: He is afebrile, heart rate 85. His most recent blood pressure is 88/62. His systolics seem to ranging anywhere from a low of 88 up to the mid 120s. His ins and outs have limited data. He appears negative around 2 L. General: He is in no acute distress. Cardiovascular: He sounds to be in an irregularly irregular rhythm which is consistent with atrial fibrillation on his telemetry. He has no lower extremity edema. Chest exam: Sounds relatively clear with poor effort. He has no increased work of breathing. Abdomen: Soft, nontender. PERTINENT DATA: His white count is 12.4, hematocrit 40, platelet count 246,000. His sodium is 140, potassium 4, BUN 32, creatinine is 1.2. His proBNP is 7342 with an initial proBNP of 4739. His electrocardiogram this morning demonstrated atrial fibrillation with what appears to be some aberrant conduction as well as PVCs rate controlled. His echocardiogram on the demonstrated an EF of 20%, mild LVH, LV enlargement, severe mitral regurgitation. ASSESSMENT: Mr. Arriaga is a 63-year-old gentleman who presented with new onset heart failure, new onset atrial fibrillation. PLAN: We will proceed with cardiac catheterization in the morning. The patient is on an ARB as well as metoprolol. Due to some relative hypotension, I will reduce his metoprolol to 25 b.i.d., change his Lasix to 40 IV daily. For now, we will continue him on the aspirin, atorvastatin, Lovenox and losartan. Risks, benefits and alternatives of the procedure have been explained. He agrees to proceed. cc: Rojelio Hinojosa MD
[2019-01-13] MEDS: LOVENOX SUBQ SCH ×2 (05:34→05:35)
[2019-01-13 06:09] LABS: BASO# 0.06 X1000 (0.0-0.2); BASO% 0.5 % (0.0-0.8); EOS# 0.09 X1000 (0.0-0.7); EOS% 0.7 % (0.0-10.0); HEMATOCRIT 42.3 % (42.0-52.0); HEMOGLOBIN 13.6 g/dL (14.0-18.0); IMM GRAN# 0.02 X1000 (0.0-0.04); IMM GRAN% 0.2 % (0.0-0.5); LYMPH# 3.56 X1000 (1.2-3.4); MCH 30.6 PG (27-31); MCHC 32.2 g/dL (33-37); MCV 95.1 FL (81-99); MONO# 1.21 X1000 (0.11-0.59); MONO% 9.2 % (1.7-9.3); NEUT# 8.25 X1000 (1.4-6.5); NEUT% 62.4 % (42.2-75.2); PLT 238 X1000 (130-400); RBC 4.45 XMIL (4.7-6.1); WBC 13.19 X1000 (4.8-10.8)
[2019-01-13 06:19] LABS: INR 1.18; PROTIME 15.1 Seconds (11.0-16.0)
[2019-01-13 06:27] LABS: AGAP 12; BUN 35 mg/dL (8-22); CALCIUM 8.8 mg/dL (8.8-10.2); CHLORIDE 101 mmol/L (98-107); COSMO 284; CREATININE 1.1 mg/dL (0.7-1.2); ESTIMATED GFR > 60; GLUCOSE 106 mg/dL (70-104); MAGNESIUM 1.9 mg/dL (1.5-2.7); SODIUM 138 mmol/L (136-145); TCO2 25 mmol/L (25-35)
[2019-01-13] MEDS: MORPHINE IV PRN ×3 (07:51→20:20)
[2019-01-13] MEDS: PHENERGAN IV PRN (07:52)
[2019-01-13] MEDS: COZAAR PO SCH (08:25)
[2019-01-13] MEDS: ASPIRIN EC PO SCH (08:25)
[2019-01-13] MEDS: LOPRESSOR PO SCH ×2 (08:25→20:20)
[2019-01-13] MEDS ORDERED: LASIX IV SCH (09:00)
--- NOTE | 2019-01-13 11:30 | PROGRESS NOTE ---
DATE: 01/13/2019 SUBJECTIVE: No acute events overnight. He feels better today. He was complaining of some mild chest pain during the night, but not at this moment. ProBNP improved from 7342 to 2782. Today he has been scheduled for a cardiac cath. Cardiology Department has been following this patient closely, and they have been modifying his medications. OBJECTIVE: Vital Signs: Temperature 97.4 degrees, pulse 88, respiratory rate 22, blood pressure 110/80, oxygen saturation 97% on 2 L of nasal cannula. HEENT: Head normocephalic, no trauma. PERRLA. Neck: Supple. I do not see JVD today. Central trachea. Cardiovascular: Irregularly irregular rate and rhythm. Chest: Decreased breath sounds a little bit at the bases with some crepitus. Abdomen: Soft, nontender, nondistended. No hepatosplenomegaly. Extremities: No edema, no clubbing, no cyanosis. Neurological examination: This patient is alert. He is oriented x3. No focal deficits. LABORATORY: WBC 13.1, hemoglobin 13.6, hematocrit 42.3, platelets 238. Sodium 138, potassium chloride 101, bicarbonate 25. BUN 35, creatinine 1.1, glucose 106, calcium 8.8, magnesium 1.9. ASSESSMENT AND PLAN: 1. Chest pain. This is better. At this moment he is not complaining of chest pain. He had some chest pain during the night though. We will continue with the same medications. The medication has been adjusted by Cardiology Department. He will have a cardiac catheterization today. 2. New onset congestive heart failure. As per the patient, he started having symptoms around 3 weeks ago with orthopnea at home and shortness of breath even with mild physical activity. Echocardiogram showed an ejection fraction of 20% and also pulmonary hypertension. We will continue with same management. Like I mentioned before, he is going to get a cardiac catheterization today. 3. New onset atrial fibrillation with rapid ventricular response, now rate controlled. He has been placed on anticoagulation and beta blockers as well. 4. Right upper quadrant flank pain, likely musculoskeletal, resolved. 5. Leukocytosis likely reactive. I do not have any source of infection. 6. Tobacco abuse and recreational drug use. He has a positive urine toxicology for marijuana. He has been highly advised against tobacco use. I will continue with daily cessation education. cc: Abdirashid Penn MD
[2019-01-13] MEDS: NICODERM PATCH TD SCH (11:49)
[2019-01-13] MEDS ORDERED: LOVENOX SUBQ ONE (14:12)
--- NOTE | 2019-01-13 14:41 | EKG Report ---
Test Performed on : 01/13/2019 1:15:28 PM Test Reason : CP Blood Pressure : / mmHG Vent. Rate : 092 BPM Atrial Rate : 105 BPM P-R Int : 000 ms QRS Dur : 114 ms QT Int : 400 ms P-R-T Axes : 000 059 264 degrees QTc Int : 494 ms Atrial fibrillation. Left ventricular hypertrophy with repolarization abnormality Prolonged QT Abnormal ECG When compared with ECG of 12-JAN-2019 06:56, (Unconfirmed) Current undetermined rhythm precludes rhythm comparison, needs review T wave inversion more evident in Inferior leads Confirmed by Thiago MÉNDEZ, P.J.M ([id number]) on 01/13/2019 8:01:23 PM
[2019-01-13] MEDS: LIPITOR PO SCH (20:20)
[2019-01-14] MEDS: MORPHINE IV PRN ×4 (02:21→20:38)
[2019-01-14 06:12] LABS: INR 1.13; PROTIME 14.7 Seconds (11.0-16.0)
[2019-01-14 06:13] LABS: HEMATOCRIT 38.9 % (42.0-52.0); HEMOGLOBIN 12.8 g/dL (14.0-18.0); MCH 31.4 PG (27-31); MCHC 32.9 g/dL (33-37); MCV 95.6 FL (81-99); RBC 4.07 XMIL (4.7-6.1); RDW 13.9 % (11.5-14.5); WBC 10.69 X1000 (4.8-10.8)
[2019-01-14 06:31] LABS: AGAP 12; BUN 31 mg/dL (8-22); CALCIUM 8.6 mg/dL (8.8-10.2); CHLORIDE 100 mmol/L (98-107); COSMO 282; ESTIMATED GFR > 60; GLUCOSE 103 mg/dL (70-104); POTASSIUM 4.1 mmol/L (3.5-5.1); SODIUM 138 mmol/L (136-145); TCO2 26 mmol/L (25-35)
--- NOTE | 2019-01-14 06:58 | CARDIOLOGY PROGRESS NOTE ---
DATE: 01/13/2019 SUBJECTIVE: Mr. Arriaga reports he is doing well. He did have another episode of flushing that occurred today. This was not associated with any sort of chest pain. PHYSICAL EXAMINATION: Vital Signs: The patient is afebrile. Heart rate 84 and blood pressure 109/80. I's and O's continue to be negative. His cumulative balance is -3.3 L. General: He is in no acute distress. Cardiovascular: He sounds to be in any irregularly irregular rhythm. He has no obvious murmurs. He has no S3. He has no lower extremity edema. His extremities are warm and well perfused. Chest: Exam is clear bilaterally. He has no increased work of breathing. Abdomen: Soft and nontender. PERTINENT DATA: His EKG today at 13:15 again shows atrial fibrillation with probable aberrant conduction as well as PVCs. His sodium is 138, potassium 4, BUN 35, and creatinine is 1.1. ProBNP is 2782 which is down from 7342 at its peak. White count is 13.2, hematocrit 42 and platelet count is 238,000. ASSESSMENT: Mr. Arriaga is a 63-year-old gentleman with new onset systolic heart failure and atrial fibrillation. PLAN: The patient currently is on aspirin, losartan and metoprolol. We have changed him over to oral Lasix. He is on statin therapy as well. We will plan on performing a left heart catheterization tomorrow for delineation of his coronary anatomy. He continues on Lovenox for his atrial fibrillation. cc: Rojelio Hinojosa MD
[2019-01-14] MEDS: ASPIRIN EC PO SCH ×2 (07:42→10:20)
[2019-01-14] MEDS: COZAAR PO SCH ×2 (07:42→10:21)
[2019-01-14] MEDS: LOPRESSOR PO SCH ×3 (07:42→20:39)
[2019-01-14] MEDS: NICODERM PATCH TD SCH ×2 (07:43→10:21)
[2019-01-14] MEDS: PHENERGAN IV PRN (08:07)
--- NOTE | 2019-01-14 09:09 | CARDIOLOGY PROGRESS NOTE ---
DATE: 01/14/2019 SUBJECTIVE: Mr. Arriaga reports he is doing better. He has no lower extremity edema. He has no pain complaints. No heart racing. PHYSICAL EXAMINATION: Vital Signs: Afebrile, heart rate 82, his blood pressure is 116/75. Intakes and outputs: He continues to be negative on his fluid balance. Total balance is -3.4 L. General: He is in no acute distress. Cardiovascular: He sounds to be in an irregularly irregular rhythm, which is consistent with atrial fibrillation on his telemetry. He has no lower extremity edema. Chest: Clear. He has no increased work of breathing. Abdomen: Soft, nontender. PERTINENT DATA: His hematocrit is 38, platelet count 232,000. INR 1.1. His sodium is 138, potassium 4.1, BUN 31, creatinine is 1, which is essentially stable from yesterday. His proBNP is 2953, which is roughly stable from yesterday. ASSESSMENT: Mr. Arriaga is a 63-year-old gentleman who presented with new-onset heart failure and atrial fibrillation. PLAN: Cardiac catheterization will be undertaken today. Risks, benefits, and alternatives have been discussed with the patient. He agrees to proceed. We will continue him on aspirin, statin therapy, oral Lasix, his ARB dose, as well as metoprolol. Further recommendations to follow the results of the cardiac catheterization. cc: Rojelio Hinojosa MD
[2019-01-14] MEDS ORDERED: HEPARIN 1000 UNITS/NS 2,000 UNIT/1,000 ML IV.SOLN ONE (11:33)
[2019-01-14] MEDS ORDERED: HEPARIN ONE (11:35)
[2019-01-14] MEDS ORDERED: ISOPTIN IV ONE (12:00)
[2019-01-14] MEDS ORDERED: VERSED ONE (12:05)
[2019-01-14] MEDS ORDERED: DILAUDID ONE (12:06)
[2019-01-14] MEDS ORDERED: ANESTHESIA PB SET 88 IN 5742 ONE (12:08)
[2019-01-14] MEDS ORDERED: CLAVE TWINSITE 32 IN 11959 ONE (12:08)
[2019-01-14] MEDS ORDERED: NS 1,000 ML ONE (12:08)
--- NOTE | 2019-01-14 13:09 | CARDIAC CATH REPORT ---
PROCEDURE NAME: - INDICATION FOR PROCEDURE: Systolic heart failure. PROCEDURES PERFORMED: 1. Left heart catheterization. 2. Selective coronary angiography. PROCEDURE IN DETAIL: Mr. Arriaga was brought to the catheterization laboratory in a fasting state. Informed consent was obtained. Prepped in the usual fashion. He was anesthetized over the right femoral artery. A 5-Swiss sheath was placed via modified Seldinger technique. Catheters were introduced. Hemodynamic measurements were made in the ascending thoracic aorta. Coronary angiography was performed in multiple views using JL-4 and JR-4 diagnostic catheters. Left heart catheterization was performed using the JR-4. At the conclusion of the procedure, all sheaths and catheters were removed. Pressure was held. 60 mL of IV contrast. 5 to 10 mL of blood loss. No apparent complications. FINDINGS: 1. The left main appears normal and originates from the left coronary cusp. 2. Left anterior descending originates from the left main. There is a 50% proximal calcified lesion with minor luminal irregularities in the mid and distal vessel. 3. Circumflex originates from the left main. Minor luminal irregularities are noted throughout the vessel. The vessel is relatively small. 4. Right coronary originates from the right coronary cusp. There is 30% to 40% proximal disease and midvessel disease, with minor luminal irregularities in the distal vessel. The right coronary artery is dominant. 5. Aortic blood pressure 94/67, with a mean of 77. Left ventricle pressure 90/15, with an LVEDP of 20. ASSESSMENT: Mr. Arriaga is a 63-year-old gentleman who presented with new-onset heart failure and atrial fibrillation. PLAN: He has nonobstructive coronary disease. We will escalate his atorvastatin to 40 mg. We will continue him on the current medications, and give him a single dose of Lasix at 40 mg IV today. He will return to the floor for usual postprocedure convalescence. We will likely initiate anticoagulation for his atrial fibrillation tomorrow. cc: Rojelio Hinojosa MD
[2019-01-14] MEDS: LASIX PO SCH (13:24)
[2019-01-14] MEDS ORDERED: LASIX IV ONE ×2 (13:45→20:00)
--- NOTE | 2019-01-14 16:12 | EKG Report ---
Test Performed on : 01/14/2019 4:04:16 PM Test Reason : s/p cardiac cath Blood Pressure : / mmHG Vent. Rate : 085 BPM Atrial Rate : 070 BPM P-R Int : 000 ms QRS Dur : 118 ms QT Int : 408 ms P-R-T Axes : 000 096 -68 degrees QTc Int : 485 ms Atrial fibrillation. with premature ventricular or aberrantly conducted complexes. Rightward axis Left ventricular hypertrophy with QRS widening ST & T wave abnormality, consider inferolateral ischemia Prolonged QT Abnormal ECG When compared with ECG of 13-JAN-2019 13:15, No significant change was found Confirmed by Thiago MÉNDEZ, P.J.M ([id number]) on 01/15/2019 5:39:22 PM
[2019-01-14] MEDS ORDERED: LIPITOR PO SCH (21:00)
--- NOTE | 2019-01-14 21:15 | PROGRESS NOTE ---
DATE: 01/14/2019 SUBJECTIVE: This patient seems to be feeling better. He had a cardiac cath today, Cardiology Department on board. OBJECTIVE: Vital Signs: Temperature 98.4, pulse 86, respiratory rate 20, blood pressure 103/64, oxygen saturation 97% on room air. HEENT: Head normocephalic, no trauma. PERRLA. Neck: Supple. I do not see JVD. Central trachea. Cardiovascular: Irregularly irregular rate and rhythm. Chest: Decreased breath sounds with some crepitus at the bases. Abdomen: Soft, nontender, nondistended. No hepatosplenomegaly. Extremities: No edema, no clubbing, no cyanosis. Neurological: The patient is alert. He is oriented x3. No focal deficits. LABORATORY: WBCs 10.6, hemoglobin 12.8, hematocrit 38.9, platelets 232. Sodium 138, potassium 4.1, chloride 100, bicarbonate 26, BUN 31, creatinine 1, glucose 103, calcium 8.6, magnesium 2.0. ASSESSMENT AND PLAN: 1. Chest pain. He is not complaining of chest pain today, and he had a cardiac cath done today that showed a 50% proximal calcified lesion with minor luminal irregularities in the mid and distal vessel of the LAD. Minor luminal irregularities are noted throughout the vessel in the circumflex. The right coronary originates from the right coronary cusp. There is 30% to 40% proximal disease with midvessel disease with minor luminal irregularities in the distal vessel. The right coronary artery is dominant. Per the Cardiology Department, this patient has a known obstructive coronary disease. They have escalated his atorvastatin to 40 m. They will continue him on the current medication. He was transferred back to the floor, and we will initiate anticoagulation for his atrial fibrillation tomorrow. 2. New-onset congestive heart failure. He started having symptoms around 3 weeks ago with orthopnea at home and shortness of breath even with mild physical activity. Echocardiogram showed an ejection showed an ejection fraction of 20% and pulmonary hypertension. We will continue with the same management. The atorvastatin was increased to 40. Cardiology Department on board. 3. New-onset atrial fibrillation with rapid ventricular response, rate controlled. He has been placed on anticoagulation which has been stopped due to the due to the procedure today. Tomorrow, we will restart treatment. 4. Right upper quadrant flank pain, likely musculoskeletal, better. 5. Leukocytosis, likely reactive, resolved. 6. Tobacco abuse. This patient has been highly advised against tobacco use. I will continue with daily cessation education. 7. Positive urine toxicology that showed cannabinoids and opiates, aware. This patient has been advised against recreational drugs. I will continue with daily cessation education. cc: Abdirashid Penn MD
[2019-01-15 07:26] LABS: AGAP 14; BUN 26 mg/dL (8-22); CALCIUM 8.4 mg/dL (8.8-10.2); CHLORIDE 98 mmol/L (98-107); COSMO 281; CREATININE 1.1 mg/dL (0.7-1.2); ESTIMATED GFR > 60; GLUCOSE 111 mg/dL (70-104); POTASSIUM 4.3 mmol/L (3.5-5.1); SODIUM 138 mmol/L (136-145); TCO2 26 mmol/L (25-35)
[2019-01-15] MEDS: COZAAR PO SCH (08:16)
[2019-01-15] MEDS: NICODERM PATCH TD SCH (08:16)
[2019-01-15] MEDS: LOPRESSOR PO SCH (08:16)
[2019-01-15] MEDS: LASIX PO SCH (08:16)
[2019-01-15] MEDS: ASPIRIN EC PO SCH (08:16)
[2019-01-15] MEDS ORDERED: ELIQUIS PO SCH (09:00)
[2019-01-15 11:06] VITALS: BP 116/65
--- NOTE | 2019-01-15 13:37 | PROGRESS NOTE ---
DATE: 01/15/2019 SUBJECTIVE: Patient is feeling better. He had a cardiac cath done yesterday. Cardiology Department on board. I have restarted this patient on anticoagulation. OBJECTIVE: Vital Signs: Temperature 98.2 degrees, pulse 89, respiratory rate 21, blood pressure 130/77, oxygen saturation 98 on room air. HEENT: Head normocephalic, no trauma. PERRLA. Neck: Supple. I do not see JVD. Central trachea. Cardiovascular: Irregularly irregular rate and rhythm. Rate controlled. Chest: Decreased breath sounds with some crepitus at the bases but much better. Abdomen: Soft, nontender, nondistended. No hepatosplenomegaly. Extremities: No edema, no clubbing, no cyanosis. Neurological: The patient is alert. He is oriented x3. No focal deficits. LABORATORY: Sodium 138, potassium 4.3, chloride 98, bicarbonate 26, BUN 26, creatinine 1.1, glucose 111, calcium 8.4. ASSESSMENT AND PLAN: 1. Chest pain, status post cardiac cath done yesterday that showed a 50% proximal calcified lesion with minor luminal irregularities in the mid and distal vessel of the LAD, minor luminal irregularities are noted throughout the vessel in the circumflex, the right coronary artery originates from the right coronary cusp. There is 30 to 40 percent proximal disease with mid vessel disease with minor luminal irregularities in the distal vessel. The right coronary artery is dominant. The Cardiology Department will need to restart this patient on anticoagulation today. Continue with same management. 2. New onset CHF, that started apparently 3 to 4 weeks ago with shortness of breath and orthopnea, low ejection fraction around 20% with pulmonary hypertension. 3. New onset atrial fibrillation with RVR, rate controlled now. Continue with anticoagulation and treatment. 4. Right upper quadrant flank pain, likely musculoskeletal, better. 5. Leukocytosis, reactive. 6. Tobacco abuse. This patient has been highly advised against tobacco use. I will continue with daily cessation education. 7. Positive urine toxicology that showed cannabinoids and opiates, aware. The patient has been advised against recreational drug use. We will continue with daily cessation education. cc: Abdirashid Penn MD
--- NOTE | 2019-01-16 16:26 | DISCHARGE SUMMARY ---
ADMISSION DATE: 01/10/2019 DISCHARGE DATE: 01/15/2019 DISCHARGE DIAGNOSES: 1. New onset congestive heart failure, ejection fraction around 20%. 2. New onset atrial fibrillation with rapid ventricular response, now rate controlled. 3. Chest pain, status post cardiac cath. 4. Right upper quadrant flank pain, musculoskeletal, resolved. 5. Leukocytosis, reactive. 6. Tobacco abuse and recreational drug use. PROCEDURES PERFORMED: Chest x-ray dated 01/10/2019. Impression: Congestive heart failure. Echocardiogram dated 01/10/2019. Impression: Moderate left ventricular enlargement with mild concentric left hypertrophy with estimated ejection fraction of 20%, moderate left atrial enlargement, elevated central venous pressure is suggested, moderate to severe mitral regurgitation in the setting of left ventricular enlargement, moderate tricuspid regurgitation with [id number] pulmonary hypertension. Chest x-ray dated 01/11/2019. Impression: Interstitial pulmonary edema and cardiomegaly. Cardiac cath dated 01/14/2019, he has a nonobstructive coronary disease. HOSPITAL COURSE: A 63-year-old male with no medical history, presented to the emergency department with a chief complaining of 2 to 3 weeks of shortness of breath, nausea, chest pressure, feeling like someone is sitting on his chest. He states that he has been progressively getting worse over the past week. He was admitted on 01/10/2019. It was noted that he has had to slow down with his normal activities of daily living due to shortness of breath but prior to admission, around 48 hours prior to the admission he has developed about 45 degree orthopnea, lower extremity edema in 1 week, dry cough, abdominal fullness and nausea. He was admitted initially at [facility] and then transferred to [facility] to be evaluated by Cardiology Department. We did an echocardiogram that showed an ejection fraction of 20% with pulmonary hypertension, mitral and tricuspid regurgitation as well. He was placed on aspirin, statin, beta blockers and ARBS. Also we started this patient on furosemide. He was feeling better on a daily basis. We did a cardiac cath that showed that the left main appears normal and originates from the left coronary cusp. The left anterior descending originates from the left main. There is a 50% proximal calcified lesion with minor luminal irregularities in the mid and distal vessel. The circumflex originates from the left main. Minor luminal irregularities are noted throughout the vessel. The vessel is relatively small. Right coronary originates from the right coronary cusp. There is 30% to 40% proximal disease and mid vessel disease with minor luminal irregularities in the distal vessel. The right coronary artery is dominant. Aortic blood pressure 94/67 with a mean of 77, left ventricular pressure 90/15 with an LVEDP of 20. The plan at that time given his known obstructive coronary disease, they escalated the atorvastatin to 40 mg. Continue with the current medication and also a single dose of Lasix IV. Given his atrial fibrillation which initially was in RVR we also started this patient on beta blockers, which has been controlling his rate and also we put this patient on anticoagulation with Eliquis. This patient is feeling much better today and he wants to go home. Cardiology Department states that he can go home and follow up with Dr. Hinojosa in 1 month. Prescriptions were actually sent in to the pharmacy. The patient seems to understand all the procedures and his problem. PHYSICAL EXAMINATION: Temperature 97.6 degrees, pulse 56 respiratory rate 20, blood pressure 116/65, oxygen saturation 98 on room air. HEENT: Head normocephalic, no trauma. PERRLA. Neck: Is supple. No JVD. No masses. Central trachea. Chest: Clear to auscultation, some crepitus at the bases. Cardiovascular: Irregularly irregular rate and rhythm. Rate controlled. Abdomen: Soft, nontender, nondistended. No hepatosplenomegaly. Extremities: No edema, no clubbing, no cyanosis. Neurological: The patient is alert and oriented x3. No focal deficits. LABORATORY: Sodium 138, potassium 4.3, chloride 98, bicarbonate 26, BUN 26, creatinine 1.1, glucose 111, calcium 8.4. DISCHARGE MEDICATIONS: 1. Eliquis 5 mg p.o. b.i.d. 2. Aspirin 81 mg p.o. daily. 3. Atorvastatin 40 mg p.o. at bedtime. 4. Lasix 40 mg p.o. daily. 5. Losartan 25 mg p.o. daily. 6. Metoprolol 25 mg p.o. b.i.d. TIME SPENT: Time discharging this patient around 35 minutes. cc: Abdirashid Penn MD
== END 2019-01-15 13:48 | disposition home or self-care (01) | DRG 287 ==
LOC: P.ED 14:00 → EDIPHOLD 14:00 → SUATTDRO 23:23 → MERGE 23:23
PROVIDERS: ATTEND Internal Medicine